=== PATIENT | male | born 1985 | race Caucasian/White ===

== ENCOUNTER 2017-06-23 19:14 | Emergency (ER) | payer SELFPAY ==
[2017-06-23] MEDS ORDERED: Morphine 4 MG/ML VIAL ONE (19:36)
[2017-06-23 19:37] LABS: #Basophils 0.1 thou/uL (0.0-0.2); #Lymphocytes 2.7 thou/uL (1.20-3.40); #Monocytes 0.7 thou/uL (0.11-0.59); %Basophils 1.4 % (0.0-1.0); %Eosinophils 0.3 % (0.0-10.0); %Lymphocytes 31.5 % (21.0-51.0); Hematocrit 46.7 % (42.0-52.0); Mean Platelet Volume 7.8 fL (7.4-10.4); Red Blood Cell (RBC) Count 4.99 mill/uL (4.70-6.10); White Blood Cell (WBC) Count 8.4 thou/uL (4.8-10.8)
[2017-06-23] MEDS ORDERED: Ketorolac Tromethamine 30 MG/ML VIAL ONE (19:41)
[2017-06-23 20:22] LABS: ALT (SGPT) 13 U/L (8-55); AST (SGOT) 19 U/L (5-34); Alkaline Phosphatase 78 U/L (40-150); Anion Gap 17 mmol/L (10-20); BUN (Urea Nitrogen) 21 mg/dL (8.9-20.6); Bilirubin, Total 1.7 mg/dL (0.2-1.2); Calc. Creatinine Clearance 0 mL/min (70-130); Calcium 9.8 mg/dL (7.8-10.44); Carbon Dioxide 21 mmol/L (22-29); Chloride 103 mmol/L (98-107); Estimated GFR-MDRD 67; Globulin 3.2 g/dL (2.4-3.5); Protein, Total 7.7 g/dL (6.0-8.3)
[2017-06-23 21:22] LABS: Bilirubin Small (Negative); Blood, Urine Negative (Negative); Glucose, Urine (Dipstick) Negative (Negative); Ketone, Urine 80 mg/dL (Negative); Nitrite Negative (Negative); Protein, Urine (Dipstick) 30 mg/dL (Neg-Trace)
[2017-06-23 21:24] LABS: Bacteria/HPF None Seen HPF (None Seen); Hyaline Casts/LPF 4-6 HYALINE CAST LPF (0-3 Hyaline); RBC/HPF None Seen HPF (0-3); Squamous Epithelial 0-3 HPF (0-3)
[2017-06-23 21:32] LABS: Amphetamine Detected (NotDetected); Methadone Not Detected (NotDetected); Methamphetamine Detected (NotDetected)
--- NOTE | 2017-07-31 13:38 | EKG ---
Test Reason : Blood Pressure : / mmHG Vent. Rate : 099 BPM Atrial Rate : 099 BPM P-R Int : 130 ms QRS Dur : 080 ms QT Int : 344 ms P-R-T Axes : 085 100 063 degrees QTc Int : 441 ms Normal sinus rhythm Rightward axis Borderline ECG Confirmed by DARIELA PACE ([id number]), editor managing director REGINALD SANCHEZ ([id number]) on 07/31/2017 1:38:14 PM Referred By: Confirmed By:DARIELA PACE
== END 2017-06-24 00:59 | disposition home or self-care (01) ==
LOC: ERS 19:14
DX: T21.26XA Burn of second degree of male genital region, initial encounter (principal); J45.909 Unspecified asthma, uncomplicated; F17.210 Nicotine dependence, cigarettes, uncomplicated; Z79.899 Other long term (current) drug therapy; X12.XXXA Contact with other hot fluids, initial encounter
CPT/HCPCS: 80053; 80306; 81003; 81015; 85025; 93005; 96361; 96374; 96375; 99406; G0390; J1885; J2270

== ENCOUNTER 2018-08-23 21:56 | Emergency (ER) | payer SELFPAY ==
[2018-08-23] MEDS ORDERED: Metoclopramide HCl 10 MG/2 ML VIAL ONE (22:08)
[2018-08-23] MEDS ORDERED: diphenhydrAMINE 50 MG/ML VIAL ONE (22:08)
--- NOTE | 2018-08-23 22:40 | CT ---
CT HEAD NONCONTRAST 08/23/18 HISTORY: Headache. FINDINGS: No comparison. There is no evidence of acute intracranial hemorrhage or infarct. Small subtle ill-defined areas of d ecreased density are present within the white matter adjacent to the frontal horn of the left lateral ventricle and at the periphery of the right frontal lobe. No mass effect or shift of midline structu res. Ventricles appear normal in size, shape and position. The visualized paranasal sinuses remain we ll aerated. IMPRESSION: No acute intracranial abnormalities are demonstrated. Chronic ischemic changes are somewhat pronounced for the patient's age. POS: [facility]
== END 2018-08-23 23:00 | disposition home or self-care (01) ==
LOC: ERS 21:56
DX: S06.9X9A Unspecified intracranial injury with loss of consciousness of unspecified duration, initial encounter (principal); J45.909 Unspecified asthma, uncomplicated; Z79.51 Long term (current) use of inhaled steroids; W01.0XXA Fall on same level from slipping, tripping and stumbling without subsequent striking against object, initial encounter
CPT/HCPCS: 70450; 96365; 96375; J1200; J2765

== ENCOUNTER 2019-10-19 11:26 | Emergency (ER) | payer SELFPAY ==
[2019-10-19] MEDS ORDERED: Morphine 4 MG/ML VIAL ONE ×2 (11:58→13:49)
[2019-10-19] MEDS ORDERED: Ondansetron PF 4 MG/2 ML Vial ONE (11:58)
[2019-10-19 12:16] LABS: Bilirubin Negative (Negative); Blood, Urine Negative (Negative); Clarity Clear (Clear); Glucose, Urine (Dipstick) Normal (Negative); Leukocyte Negative Leu/uL (Negative); Nitrite Negative (Negative); Protein, Urine (Dipstick) 20 mg/dL (Neg-Trace)
--- NOTE | 2019-10-19 12:29 | CT ---
CT ABDOMEN AND PELVIS PERFORMED WITHOUT CONTRAST ENHANCEMENT: Date: 10/19/2019 HISTORY: Left lower quadrant abdomen and left testicular pain. FINDINGS: The lung bases are clear. The liver, spleen, pancreas, and gallbladder regions all appear unremarkable. Right and left adrenal glands, and right and left kidneys are normal in size. No renal calculi. No ob struction. No ureteral calculi are seen. There is no significant periaortic or mesenteric adenopathy. CT of pelvis was performed without contrast enhancement. No adenopathy, mass, or free fluid. The appe ndix is normal. IMPRESSION: No acute findings of the abdomen or pelvis. POS: [facility]
--- NOTE | 2019-10-19 12:48 | ULT ---
Exam: Testicular ultrasound HISTORY: Left testicular pain, 2-3 days. Palpable focus in the left hemiscrotum COMPARISON: None TECHNIQUE: Sagittal and transverse imaging of the left and right hemiscrotum are performed. Testicula r Doppler is performed with grayscale, color-flow, Doppler imaging and spectral waveform analysis. FINDINGS: Right hemiscrotum: Testicle: Homogeneous echotexture. No intratesticular masses. Right testicle measurements: 1.9 x 3.2 x 4.6 Right epididymis: Normal echotexture. Right epididymis measurements: 1.0 x 1.3 cm. Hydrocele: Trace fluid Left hemiscrotum: Left testicle: Homogeneous echotexture. No intratesticular masses. Left testicle measurements: 1.9 x 2.5 x 4.7 cm Left epididymis: Complex mixed anechoic and hypoechoic focus measuring 1.3 x 1.1 x 0.9 cm. The anecho ic focus is felt to represent a cyst. Within it, the hypoechoic focus is mobile and does not have flow. Debris is favored, measuring 0.6 x 0.4 x 0.7 cm. Left epididymis measurements:1.4 x 1.1 cm. Hydrocele: None. Incidentals: Possible left-sided varicocele. Testicular Doppler: There is symmetric vascular flow to the left and right testicle. IMPRESSION: 1. Symmetric vascular flow to the testicles. 2. Complex cystic lesion associated with the left epididymis. Nonemergent urology consultation is rec ommended. 3. Possible minimal left-sided varicoceles. Transcribed Date/Time: 10/19/2019 12:58 PM
[2019-10-19 12:52] LABS: #Basophils 0.1 thou/uL (0.0-0.2); #Lymphocytes 2.2 thou/uL (1.20-3.40); #Monocytes 0.7 thou/uL (0.11-0.59); #Neutrophils 5.1 thou/uL (1.40-6.50); %Basophils 0.7 % (0.0-1.0); %Eosinophils 0.4 % (0.0-10.0); %Lymphocytes 27.5 % (21.0-51.0); %Monocytes 8.6 % (0.0-10.0); %Neutrophils 62.7 % (42.0-75.0); Hemoglobin 16.2 g/dL (14.0-18.0); Mean Corpuscular HGB CONC 34.7 g/dL (32.0-36.0); Mean Corpuscular Hemoglobin 31.8 pg (27.0-31.0); Mean Corpuscular Volume 91.7 fL (78.0-98.0); Mean Platelet Volume 7.9 fL (7.4-10.4); Platelet Count 233 thou/uL (130-400); RBC Distribution Width 11.8 % (11.5-14.5); White Blood Cell (WBC) Count 8.1 thou/uL (4.8-10.8)
[2019-10-19 13:13] LABS: ALT (SGPT) 33 U/L (8-55); AST (SGOT) 28 U/L (5-34); Albumin 4.8 g/dL (3.5-5.0); Alkaline Phosphatase 88 U/L (40-110); Anion Gap 15 mmol/L (10-20); BUN (Urea Nitrogen) 18 mg/dL (8.9-20.6); Calc. Creatinine Clearance 0 mL/min (70-130); Calcium 9.8 mg/dL (7.8-10.44); Carbon Dioxide 25 mmol/L (22-29); Chloride 101 mmol/L (98-107); Estimated GFR-MDRD 76; Glucose 90 mg/dL (70-105); Lipase 18 U/L (8-78); Potassium 3.8 mmol/L (3.5-5.1); Protein, Total 7.8 g/dL (6.0-8.3); Sodium 137 mmol/L (136-145)
[2019-10-19] MEDS ORDERED: SULFAMETHOXAZOLE IVPB SCH (13:45)
[2019-10-19] MEDS ORDERED: TRIMETHOPRIM IVPB SCH (13:45)
[2019-10-19] MEDS ORDERED: WATER IVPB SCH (13:45)
[2019-10-19] MEDS ORDERED: DEXTROSE 5% IVPB SCH (13:45)
== END 2019-10-19 17:19 | disposition home or self-care (01) ==
LOC: ERS 11:26
DX: N49.2 Inflammatory disorders of scrotum (principal); N44.2 Benign cyst of testis; J45.909 Unspecified asthma, uncomplicated; F17.210 Nicotine dependence, cigarettes, uncomplicated
CPT/HCPCS: 36415; 74176; 76870; 80053; 81003; 83690; 85025; 87804; 93976; 96361; 96365; 96366; 96375; 96376; J2270; J2405; J3490; J7070

== ENCOUNTER 2025-02-27 12:04 | Emergency (ER) | payer SELFPAY ==
[~2025-02-27 12:04] MED LIST: Iopamidol-370 76% 500 ML MDV (1 ML CHARGE) ONE
[2025-02-27 12:32] LABS: #Basophils 0.04 10x3/uL (0.0-0.2); #Eosinophils 0.09 10x3/uL (0.0-0.7); #Monocytes 0.39 10x3/uL (0.11-0.59); #Neutrophils 6.20 10x3/uL (1.40-6.50); %Basophils 0.5 % (0.0-1.0); %Eosinophils 1.1 % (0.0-10.0); %Lymphocytes 15.4 % (21.0-51.0); %Monocytes 4.9 % (0.0-10.0); %Neutrophils 77.8 % (42.0-75.0); Hematocrit 40.0 % (42.0-52.0); Hemoglobin 13.4 g/dL (14.0-18.0); Mean Corpuscular Hemoglobin 30.7 pg (27.0-31.0); Mean Corpuscular Volume 91.5 fL (78.0-98.0); Platelet Count 202 10x3/uL (130-400); Red Blood Cell (RBC) Count 4.37 mill/uL (4.70-6.10); White Blood Cell (WBC) Count 7.97 10x3/uL (4.8-10.8)
[2025-02-27 12:51] LABS: Acetaminophen Less than 10 mcg/mL (Less than 10); Salicylate Less than 8.0 mg/dL (Less than 8.0)
[2025-02-27 12:55] LABS: Troponin I Less than 0.010 ng/mL (< 0.028)
[2025-02-27 14:00] LABS: ALT (SGPT) 45 U/L (Less than 45); AST (SGOT) 33 U/L (11-34); Albumin 3.7 g/dL (3.1-4.5); Alkaline Phosphatase 81 U/L (40-110); Anion Gap 9 mmol/L (10-20); BUN (Urea Nitrogen) 9 mg/dL (8.9-20.6); Bilirubin, Total 0.7 mg/dL (0.3-1.2); CK (CPK) 46 U/L (30-200); Calc. Creatinine Clearance 0 mL/min (70-130); Calcium 8.0 mg/dL (7.8-10.44); Carbon Dioxide 25 mmol/L (22-29); Chloride 107 mmol/L (98-107); Globulin 2.7 g/dL (2.4-3.5); Glucose 95 mg/dL (70-105); Potassium 3.8 mmol/L (3.5-5.1); Sodium 137 mmol/L (136-145)
[2025-02-27 14:43] LABS: Bacteria/HPF None Seen HPF (None Seen); CAUTI Indications for Culture Pelvic or flank pain; Glucose, Urine (Dipstick) Normal (Negative); Leukocyte Negative Leu/uL (Negative); Protein, Urine (Dipstick) Negative (Neg-Trace); RBC/HPF 0-3 HPF (0-3); Specific Gravity, Urine 1.025 (1.002-1.036); WBC/HPF 0-3 HPF (0-3)
[2025-02-27 14:47] LABS: Urine Culture Reflex No No
[2025-02-27 15:03] LABS: Cocaine Metabolite Screen Negative (Negative); THC/Cannabinoid Screen PRELIM POSITIVE (Negative); Tricyclic Screen Negative (Negative)
== END 2025-02-27 15:31 ==
LOC: ERS 12:04
DX: T43.652A Poisoning by methamphetamines intentional self-harm, initial encounter (principal); R45.851 Suicidal ideations; J45.909 Unspecified asthma, uncomplicated; F17.210 Nicotine dependence, cigarettes, uncomplicated; F17.290 Nicotine dependence, other tobacco product, uncomplicated; Z79.51 Long term (current) use of inhaled steroids
CPT/HCPCS: 36415; 71045; 74177; 80053; 80306; 80307; 81001; 82550; 84484; 85025; 93005; Q9967